=== PATIENT | male | born 1990 | race Caucasian/White ===

== ENCOUNTER 2017-04-19 20:22 | Emergency (ER) | payer MEDICAID ==
--- NOTE | 2017-04-19 20:48 | EDM.PDOC ---
ED HPI GENERAL MEDICAL PROBLEM - General Chief Complaint: Behavioral/Psych Stated Complaint: MEDICAL Time Seen by Provider: 04/19/17 20:30 - History of Present Illness INITIAL COMMENTS - FREE TEXT/NARRATIVE: HISTORY AND PHYSICAL: History of present illness: Patient is a 26-year-old white male history of polysubstance abuse including methamphetamine and heroin who presents with police after having expressed depressive symptoms and suicidal ideation he has no other complaints or concerns Review of systems: As per history of present illness and below otherwise all systems reviewed and negative. Past medical history: As per history of present illness and as reviewed below otherwise noncontributory. Surgical history: As per history of present illness and as reviewed below otherwise noncontributory. Social history: No reported history of drug or alcohol abuse. Family history: As per history of present illness and as reviewed below otherwise noncontributory. Physical exam: HEENT: Atraumatic, normocephalic, pupils reactive, negative for conjunctival pallor or scleral icterus, mucous membranes moist, throat clear, neck supple, nontender, trachea midline. Lungs: Clear to auscultation, breath sounds equal bilaterally, chest nontender. Heart: S1S2, regular, negative for clicks, rubs, or JVD. Abdomen: Soft, nondistended, nontender. Negative for masses or hepatosplenomegaly. Negative for costovertebral tenderness. Pelvis: Stable nontender. Genitourinary: Deferred. Rectal: Deferred. Extremities: Atraumatic, negative for cords or calf pain. Neurovascular unremarkable. Neuro: Awake, alert, oriented. Cranial nerves II through XII unremarkable. Cerebellum unremarkable. Motor and sensory unremarkable throughout. Exam nonfocal. Diagnostics: CBC CMP urine drug screen EtOH EKG chest x-ray Therapeutics: None Impression: #1 depressive episode with suicidal ideation #2 polysubstance abuse Definitive disposition and diagnosis as appropriate pending reevaluation and review of above. - Related Data Allergies Allergy/AdvReac Type Severity Reaction Status Date / Time No Known Allergies Allergy Verified 08/17/16 12:01 Home Meds: Home Meds . [No Known Home Meds] 08/17/16 [History] Past Medical History HEENT History: Reports: None Cardiovascular History: Reports: None Respiratory History: Reports: None Neurological History: Reports: None Psychiatric History: Reports: Suicidal Ideation - Past Surgical History HEENT Surgical History: Reports: None Cardiovascular Surgical History: Reports: None Social & Family History - Tobacco Use Smoking Status *Q: Current Every Day Smoker Years of Tobacco use: 10 Packs/Tins Daily: 1 - Recreational Drug Use Recreational Drug Use: Yes Drug Use in Last 12 Months: Yes Recreational Drug Type: Reports: Heroin, Marijuana/Hashish, Methamphetamine ED ROS GENERAL - Review of Systems Review Of Systems: ROS reveals no pertinent complaints other than HPI. ED EXAM, GENERAL - Physical Exam Exam: See Below (See dictation) Course - Vital Signs Last Recorded V/S: Last Vital Signs Temp 36.8 C 04/19/17 20:35 Pulse 92 04/19/17 20:35 Resp 14 04/19/17 20:35 BP 138/83 04/19/17 20:35 Pulse Ox 97 04/19/17 20:35 Departure - Departure Time of Disposition: 20:48 Disposition: DC/Tfer to Psych Hosp/Unit 65 Condition: Good Clinical Impression: Depressive disorder, Polysubstance abuse - Discharge Information Forms: ED Department Discharge
[2017-04-19 21:24] LABS: CHLORIDE,CL 109 mmol/L (98-110); SODIUM,NA 143 mmol/L (136-146)
[2017-04-19 21:25] LABS: ACETAMINOPHEN < 3.0 ug/mL
[2017-04-20 00:09] VITALS: BP 135/83
--- NOTE | 2017-04-20 10:42 | CR ---
EXAM DATE: 04/19/17 PATIENT'S AGE: 26 Patient: AURELIA RUIZ Facility: [place], [place] Site . Site : 1990 Study: XRay Chest [id number]/21/2017 9:17:58 PM Ordering Physician: Karla Covarrubias Final Report: Indication: Suicidal Technique: Chest 1 view Comparison: None Findings/Impression: Cardiovascular and mediastinum: Heart size and vasculature are normal in caliber and appearance. Mediastinum is within normal limits. Lungs and pleural space: Lungs are clear. No sign of infiltrate or mass. No sign of pleural effusion. No pneumothorax. Bones and soft tissues: No significant findings. Dictated by María Elder MD @ Apr 19 2017 9:24PM (Electronic Signature) Report Signed by Proxy. ADRYAN
== END 2017-04-19 23:47 ==
LOC: MW.ED 20:22
DX: F32.9 Major depressive disorder, single episode, unspecified (principal); F19.10 Other psychoactive substance abuse, uncomplicated; F17.210 Nicotine dependence, cigarettes, uncomplicated
CPT/HCPCS: 36415; 71010; 80053; 85025; 93005; 99285; G0478; G0480; 80305; 99282

== ENCOUNTER 2017-12-04 09:44 | Emergency (ER) | payer MEDICAID ==
[2017-12-04 09:56] VITALS: BP 127/76
--- NOTE | 2017-12-04 11:14 | EDM.PDOC ---
ED HPI GENERAL MEDICAL PROBLEM - General Chief Complaint: Upper Extremity Injury/Pain Stated Complaint: LT ARM HURTS Time Seen by Provider: 12/04/17 10:07 Source of Information: Reports: Patient History Limitations: Reports: No Limitations - History of Present Illness INITIAL COMMENTS - FREE TEXT/NARRATIVE: History of present illness: []Patient complains of inability to lift his left arm since he slept wrong 2 nights ago and again last night and symptoms have worsened. The pain in his shoulder or trauma to her shoulder. The headache, blurry vision, nausea, vomiting, fevers, or neck pain. Review of systems: As per history of present illness and below otherwise all systems reviewed and negative. Past medical history: As per history of present illness and as reviewed below otherwise noncontributory. Surgical history: As per history of present illness and as reviewed below otherwise noncontributory. Social history: No reported history of drug or alcohol abuse. Family history: As per history of present illness and as reviewed below otherwise noncontributory. Physical exam: General: Well developed, well nourished in NAD HEENT: Atraumatic, normocephalic, pupils reactive, negative for conjunctival pallor or scleral icterus, mucous membranes moist, throat clear, neck supple, nontender, trachea midline. Lungs: Clear to auscultation, breath sounds equal bilaterally, chest nontender. Heart: S1S2, regular, negative for clicks, rubs, or JVD. Abdomen: Soft, nondistended, nontender. Negative for masses or hepatosplenomegaly. Negative for costovertebral tenderness. Pelvis: Stable nontender. Genitourinary: Deferred. Rectal: Deferred. Extremities: Atraumatic, unable to raise his left arm forward or outward to his side. Distally he has equal manager of creative services strength, normal sensation distal pulses intact and full range of motion from the elbow distally. He has no tenderness to palpation over his shoulder there is no gross deformities or flattening. His right arm has full range of motion no deficits. negative for cords or calf pain. Neurovascular unremarkable. Neuro: Awake, alert, oriented. Cranial nerves II through XII unremarkable. Cerebellum unremarkable. Motor and sensory unremarkable throughout. Exam nonfocal. Diagnostics: []X-ray left shoulder negative Therapeutics: []Arm sling Impression: []neuropraxia left upper extremity Plan: []Arm sling follow-up with primary care and/or neurology return if symptoms worsen or change. Definitive disposition and diagnosis as appropriate pending reevaluation and review of above. - Related Data Allergies Allergy/AdvReac Type Severity Reaction Status Date / Time No Known Allergies Allergy Verified 12/04/17 09:58 Home Meds: Home Meds . [No Known Home Meds] 08/17/16 [History] Past Medical History - Past Health History Medical/Surgical History: Denies Medical/Surgical History HEENT History: Reports: None Cardiovascular History: Reports: None Respiratory History: Reports: None Neurological History: Reports: None Psychiatric History: Reports: Suicidal Ideation - Past Surgical History HEENT Surgical History: Reports: None Cardiovascular Surgical History: Reports: None Social & Family History - Family History Family Medical History: Noncontributory - Tobacco Use Smoking Status *Q: Current Every Day Smoker Years of Tobacco use: 10 Packs/Tins Daily: 1 - Caffeine Use Caffeine Use: Reports: Soda - Recreational Drug Use Recreational Drug Use: No Drug Use in Last 12 Months: Yes Recreational Drug Type: Reports: Heroin, Marijuana/Hashish, Methamphetamine Recreational Drug Use Frequency: Daily Review of Systems - Review of Systems Review Of Systems: See Below (See history of present illness) ED EXAM, GENERAL - Physical Exam Exam: See Below (See history of present illness) Course - Vital Signs Last Recorded V/S: Last Vital Signs Temp 97.3 F 12/04/17 09:53 Pulse 92 12/04/17 09:53 Resp 18 12/04/17 09:53 BP 127/76 12/04/17 09:53 Pulse Ox 98 12/04/17 09:53 - Orders/Labs/Meds Orders: Active Orders 24 hr Category Date Time Status Shoulder Comp Lt [CR] Stat Exams 12/04/17 10:15 Taken Departure - Departure Time of Disposition: 11:14 Disposition: Home, Self-Care 01 Condition: Good Clinical Impression: Neuropraxia of left upper extremity Qualifiers: Encounter type: initial encounter Qualified Code(s): S44.92XA - Injury of unspecified nerve at shoulder and upper arm level, left arm, initial encounter - Discharge Information Referrals: PCP,None [Primary Care Provider] - Dory Zuniga MD [Physician] - 2 Days (Follow-up early next week as soon as possible) Additional Instructions: The following information is given to patients seen in the emergency department who are being discharged to home. This information is to outline your options for follow-up care. We provide all patients seen in our emergency department with a follow-up referral. The need for follow-up, as well as the timing and circumstances, are variable depending upon the specifics of your emergency department visit. If you don't have a primary care physician on staff, we will provide you with a referral. We always advise you to contact your personal physician following an emergency department visit to inform them of the circumstance of the visit and for follow-up with them and/or the need for any referrals to a consulting specialist. The emergency department will also refer you to a specialist when appropriate. This referral assures that you have the opportunity for follow-up care with a specialist. All of these measure are taken in an effort to provide you with optimal care, which includes your follow-up. Under all circumstances we always encourage you to contact your private physician who remains a resource for coordinating your care. When calling for follow-up care, please make the office aware that this follow-up is from your recent emergency room visit. If for any reason you are refused follow-up, please contact the [facility] Emergency Department at and asked to speak to the emergency department charge nurse. Ibuprofen for inflammation, arm sling for comfort follow-up with neurology [facility] - Neurology Professional Building [address] [place] [address], [address] [place] [address] - My Orders Last 24 Hours: My Active Orders 12/04/17 10:15 Shoulder Comp Lt [CR] Stat - Assessment/Plan Last 24 Hours: My Active Orders 12/04/17 10:15 Shoulder Comp Lt [CR] Stat
--- NOTE | 2017-12-06 10:03 | CR ---
EXAM DATE: 12/04/17 PATIENT'S AGE: 27 Patient: AURELIA RUIZ Facility: [place], [place] Site . Site : 1990 Study: XRay Shoulder Left [id number]/7/2018 10:38:25 AM Ordering Physician: Noah Parsons Final Report: HISTORY: No pain no injury unable to raise arms 3 views of the left shoulder. FINDINGS: Normal articulation of the glenohumeral joint. No fractures or dislocations seen. Impression: Unremarkable left shoulder. Dictated by Noemi Junior MD @ Dec 04 2017 11:03AM (Electronic Signature) Report Signed by Proxy. ADRYAN
== END 2017-12-04 11:50 | disposition home or self-care (01) ==
LOC: MW.ED 09:44
DX: S44.92XA Injury of unspecified nerve at shoulder and upper arm level, left arm, initial encounter (principal); F17.210 Nicotine dependence, cigarettes, uncomplicated; X50.1XXA Overexertion from prolonged static or awkward postures, initial encounter
CPT/HCPCS: 73030; 99283; A4566